=== PATIENT | male | born 1965 | race Two or more races ===

== ENCOUNTER 2016-12-29 17:27 | Emergency (ER) | payer SELFPAY ==
[2016-12-29] MEDS ORDERED: IOPAMIDOL 300 (61%) 100 ML VIAL IV ONE (17:28)
[2016-12-29] MEDS ORDERED: MORPHINE SULFATE 4 MG/ML SYRINGE ONE (17:59)
[2016-12-29] MEDS ORDERED: ONDANSETRON 4 MG/2ML 2 ML VIAL ONE (17:59)
[2016-12-29] MEDS ORDERED: LACTATED RINGERS 1,000 ML ONE (17:59)
[2016-12-29 18:26] LABS: ABSOLUTE NEUTROPHIL COUNT 3.3 K/mm3 (1.8-7.7); ALB/GLOB RATIO 1.5 (>1.0); ALBUMIN 4.3 gm/dL (3.5-5.7); BASO % 0.5 % (0.2-1.0); CALCIUM 9.1 mg/dL (8.6-10.3); EOS # 0.3 (0.0-0.5); EOS % 5.3 % (0.9-2.9); HEMATOCRIT 40.3 % (32.0-52.0); HEMOGLOBIN 14.2 gm/l (14.0-18.0); IMM NEUT% 0.2 % (0-1); LYMPH # 1.5 (1.0-4.8); LYMPH % 25.9 % (15-45); MEAN CELL VOLUME 87.4 fl (80.0-94.0); MEAN CORPUSCULAR HEMOGLOBIN 30.8 pg (27.0-31.0); MEAN CORPUSCULAR HGB CONC 35.2 g/dl (33.0-37.0); MEAN PLATELET VOLUME 9.1 fl (7.4-10.4); MONO # 0.6 (0.0-0.8); MONO % 9.8 % (4-12); NEUT % 58.3 % (43-75); PLATELET COUNT 229 K/mm3 (130-400); RED CELL DISTRIBUTION WIDTH 11.2 % (11.5-14.5)
--- NOTE | 2016-12-29 19:00 | CT ---
Exam Type: ABD/PELVIS W/ CON Date and Time: 12/29/2016 5:50 PM Clinical information: Left lower quadrant pain. Comparison: None Procedure: Imaging device: [employer] Aquilion [address] scanner 1 mm axial images were obtained through the abdomen and pelvis. Stacked reconstructed 3, 4 and 5 mm images were photographed in the axial coronal and sagittal planes. No oral contrast was utilized for this examination. 100 ml of Isovue-300 was injected intravenously. Exam: with intravenous contrast. FINDINGS: Lung bases: Scans to the lung bases demonstrate dependent atelectatic changes. Liver: the liver is homogeneous with no discrete abnormality visualized. No definite findings of biliary dilatation are observed. Spleen: The spleen is homogeneous and does not appear to be enlarged. Gallbladder: There appear to be noncalcified gallstones within the lumen of the gallbladder. No adjacent inflammatory stranding is suggested. Pancreas: Normal without enlargement or evidence of adjacent inflammatory changes. Adrenal glands: Normal without enlargement or evidence of adjacent inflammatory changes. Abdominal aorta: The aorta is of normal caliber and appears to be without significant atherosclerotic disease. Kidneys: The kidneys appear to be symmetric in size with no perinephric inflammatory changes are identified. No current findings of hydronephrosis are seen. Bowel structures: The visualized bowel is of normal caliber without evidence of dilatation or obstruction. No free fluid or mesenteric inflammatory changes are identified. Appendix: The appendix is well-visualized and appears to be of normal caliber. No periappendiceal inflammatory changes or CT findings of appendicitis are currently observed. Bladder: There is moderate distention of the bladder. Hernia: A small fat filled right inguinal hernia is suggested. Adenopathy: No significant enlarged adenopathy is visualized. Osseous structures: There is evidence of bilateral spondylolysis of L5 without significant listhesis. Pelvic structures: No discrete pelvic abnormalities are visualized in this examination. IMPRESSION: 1. No significant mesenteric inflammatory stranding, free fluid or free air identified. 2. A normal appearance of the appendix without CT evidence of appendicitis. 3. Moderate distention of the bladder. 4. A small fat filled right inguinal hernia. 5. 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 6. Bibasilar atelectasis. 7. Cholelithiasis.
[2016-12-29 19:17] LABS: PH,URINE 6.5 (5.0-8.0); URINE BILIRUBIN NEGATIVE (NEGATIVE); URINE BLOOD NEGATIVE (NEGATIVE); URINE GLUCOSE (UA) NEGATIVE (NEGATIVE); URINE LEUKOCYTE ESTERASE NEGATIVE (NEGATIVE); URINE NITRITE NEGATIVE (NEGATIVE); URINE PROTEIN NEGATIVE (NEGATIVE); URINE UROBILINOGEN NORMAL (0-1 mg/dl)
[2016-12-29 19:18] LABS: URINE APPEARANCE CLEAR; URINE COLOR YELLOW
== END 2016-12-29 19:30 | disposition home or self-care (01) ==
LOC: ED 17:27
DX: R10.32 Left lower quadrant pain (principal); K80.20 Calculus of gallbladder without cholecystitis without obstruction; M51.36 Other intervertebral disc degeneration, lumbar region; K40.90 Unilateral inguinal hernia, without obstruction or gangrene, not specified as recurrent; G89.29 Other chronic pain; M54.9 Dorsalgia, unspecified; E03.9 Hypothyroidism, unspecified; Z79.899 Other long term (current) drug therapy; Z88.6 Allergy status to analgesic agent